=== PATIENT | female | born 1945 | race Hispanic/Latino ===

== ENCOUNTER → 2018-05-10 | Outpatient (CLI) | payer OTHER | END | disposition home or self-care (01) | LOC: RAH 08:38 | PROVIDERS: ATTEND Internal Medicine Gastroenterology | DX: K21.9 Gastro-esophageal reflux disease without esophagitis (principal); K44.9 Diaphragmatic hernia without obstruction or gangrene | CPT/HCPCS: 74240 ==

== ENCOUNTER → 2018-06-26 | Outpatient (CLI) | payer OTHER | END | disposition home or self-care (01) | LOC: RAH 10:23 | PROVIDERS: ATTEND Internal Medicine Gastroenterology | DX: K30 Functional dyspepsia (principal); R68.81 Early satiety | CPT/HCPCS: 78264; A9541 ==

== ENCOUNTER → 2018-08-16 | Outpatient (CLI) | payer OTHER, MEDICARE | END | disposition home or self-care (01) | LOC: SHCH 13:23 | PROVIDERS: ATTEND Internal Medicine Cardiovascular Disease | DX: I10 Essential (primary) hypertension (principal) | CPT/HCPCS: 93306 ==

== ENCOUNTER → 2018-12-18 | Outpatient (CLI) | payer OTHER, MEDICARE | END | disposition home or self-care (01) | LOC: RAH 08:08 | PROVIDERS: ATTEND Internal Medicine Gastroenterology | DX: K76.0 Fatty (change of) liver, not elsewhere classified (principal); N28.1 Cyst of kidney, acquired | CPT/HCPCS: 76700 ==

== ENCOUNTER → 2019-01-15 | Outpatient (CLI) | payer OTHER, MEDICARE | END | disposition home or self-care (01) | LOC: RAH 12:27 | PROVIDERS: ATTEND Family Medicine | DX: R91.1 Solitary pulmonary nodule (principal) | CPT/HCPCS: 71250 ==

== ENCOUNTER 2019-06-12 12:36 | Observation (INO) | payer OTHER, MEDICARE ==
[~2019-06-12] VITALS: Ht 165.1 cm; Wt 67.6 kg
[2019-06-12 13:00] LABS: BASOPHILS % (AUTO) 0.6 % (0.0-5.0); EOSINOPHILS % (AUTO) 4.2 % (0.0-8.0); HEMATOCRIT 37.3 % (36-48); LYMPHOCYTES % (AUTO) 29.4 % (21.0-51.0); MEAN CORPUSCULAR HEMOGLOBIN 30.3 pg (27.0-33.0); MONOCYTES % (AUTO) 6.4 % (3.0-13.0); NEUTROPHILS % (AUTO) 59.4 % (40.0-77.0); NUCLEATED RED BLOOD CELLS 0.1 % (0.0-0.19); PLATELET COUNT (AUTO) 271 K/uL (130-400); RED BLOOD CELL COUNT(AUTO) 4.19 MIL/uL (4.00-5.50); RED CELL DISTRIBUTION WIDTH 13.6 % (11.0-15.5)
[2019-06-12 13:07] LABS: CREATININE 0.8 mg/dL (0.5-1.5); POTASSIUM 3.9 mmol/L (3.5-5.1)
[2019-06-12 13:12] LABS: INR 0.96 (0.85-1.15); PARTIAL THROMBOPLASTIN TIME 27.1 SEC (26.3-35.5); PROTHROMBIN TIME 10.1 SEC (9.6-11.6)
[2019-06-12 13:18] LABS: BILIRUBIN,TOTAL 0.2 mg/dL (0.2-1.0); TOTAL PROTEIN, SERUM 7.6 g/dL (6.0-8.3)
[2019-06-12] MEDS ORDERED: ASPIRIN 325 MG TABLET ONE (14:01)
[2019-06-12] MEDS ORDERED: GUAIFENESIN-DM 200/20 MG 10 ML PO PRN (16:45)
[2019-06-12] MEDS ORDERED: ONDANSETRON HCL 4 MG/2 ML VIAL IV PRN (16:45)
[2019-06-12] MEDS ORDERED: LABETALOL 20 MG/4 ML DISP.SYRIN IV PRN (16:45)
[2019-06-12] MEDS ORDERED: ZOLPIDEM TARTRATE 5 MG TAB PO PRN (16:45)
[2019-06-12] MEDS ORDERED: GLUCAGON 1MG KIT 1 MG ML IM PRN (16:45)
[2019-06-12] MEDS ORDERED: DEXTROSE 50%-WATER 50 ML DISP.SYRIN IV PRN (16:45)
[2019-06-12] MEDS ORDERED: NITROGLYCERIN 0.4 MG SL TAB SL PRN (16:45)
[2019-06-12] MEDS ORDERED: DiphenhydrAMINE HCL 50 MG/ML VIAL IV PRN (16:45)
[2019-06-12] MEDS ORDERED: ACETAMINOPHEN-CODEINE 300/30MG TAB PO PRN (16:45)
[2019-06-12] MEDS ORDERED: HYDRALAZINE HCL 20 MG/ML VIAL IV PRN (16:45)
[2019-06-12] MEDS ORDERED: ACETAMINOPHEN EXTENDED RELEASE 650 MG TABLET PO PRN (16:45)
[2019-06-12 17:18] VITALS: BP 148/91
[2019-06-12 19:31] VITALS: BP 129/79
[2019-06-12] MEDS: INSULIN HUMULIN R 100 UNIT/ML 3ML SQ SCH (20:52)
[2019-06-12] MEDS: SODIUM CHLORIDE 0.9% 1000ML 1,000 ML IV SCH (20:53)
[2019-06-12] MEDS ORDERED: ATORVASTATIN CALCIUM 20 MG TABLET PO SCH (21:00)
[2019-06-12 21:28] LABS: APPEARANCE,URINE Cloudy (CLEAR); BILIRUBIN,URINE Negative (NEGATIVE); COLOR,URINE Yellow (YELLOW); GLUCOSE, URINE (UA) Negative (NEGATIVE); KETONES,URINE Negative (NEGATIVE); LEUKOCYTE ESTERASE ,URINE Moderate (NEGATIVE); NITRATE,URINE Negative (NEGATIVE); OCCULT BLOOD,URINE Negative (NEGATIVE); PH,URINE 6.5 (5.0-8.0); PROTEIN,URINE Negative (NEGATIVE)
[2019-06-12] MEDS ORDERED: LIRA0.6P SQ (21:33)
[2019-06-12] MEDS ORDERED: FAMO40TA7 PO (21:33)
[2019-06-12] MEDS ORDERED: DEXL30CA3 PO (21:33)
[2019-06-12] MEDS ORDERED: LISI30TA4 PO (21:33)
[2019-06-12] MEDS ORDERED: SIMV20TA6 PO (21:33)
[2019-06-12] MEDS ORDERED: GLIP5TAB11 PO (21:33)
[2019-06-12 21:34] LABS: AMPHET/METH SCREEN,URINE NEGATIVE (NEGATIVE); BARBITURATE SCREEN, URINE NEGATIVE (NEGATIVE); BENZODIAZEPINES SCREEN,URINE NEGATIVE (NEGATIVE); CANNABINOID SCREEN,URINE NEGATIVE (NEGATIVE); COCAINE SCREEN,URINE NEGATIVE (NEGATIVE); OPIATE SCREEN,URINE NEGATIVE (NEGATIVE); PHENCYCLIDINE SCREEN,URINE NEGATIVE (NEGATIVE)
[2019-06-12 21:44] LABS: BACTERIA,URINE Few /HPF (None Seen); RBC,URINE 0-1 /HPF (0-1); YEAST,URINE BUDDING Few /HPF (None Seen)
[2019-06-12 21:45] LABS: SQUAMOUS EPITHELIAL CELL,UR Few /HPF (0-2)
[2019-06-12 23:13] VITALS: BP 112/73
[2019-06-13] MEDS: SODIUM CHLORIDE 0.9% 1000ML 1,000 ML IV SCH ×2 (01:34→12:45)
[2019-06-13 04:03] VITALS: BP 140/78
[2019-06-13 05:26] LABS: HEMATOCRIT 33.9 % (36-48); MEAN CORPUSCULAR HGB CONC 33.8 g/dL (32.0-36.0); MEAN CORPUSCULAR VOLUME 88.8 fL (79-99); PLATELET COUNT (AUTO) 256 K/uL (130-400); RED BLOOD CELL COUNT(AUTO) 3.82 MIL/uL (4.00-5.50); RED CELL DISTRIBUTION WIDTH 13.9 % (11.0-15.5); WHITE BLOOD COUNT (AUTO) 5.1 K/uL (4.8-10.8)
[2019-06-13 05:36] LABS: HEMOGLOBIN A1C 6.8 % (4.0-6.0)
[2019-06-13] MEDS: INSULIN HUMULIN R 100 UNIT/ML 3ML SQ SCH ×3 (05:45→16:30)
[2019-06-13 05:57] LABS: ALANINE AMINOTRANSFERASE 14 U/L (12-78); ALBUMIN 3.2 g/dL (3.5-5.0); ASPARTATE AMINOTRANSFERASE 14 U/L (10-37); BILIRUBIN,TOTAL 0.4 mg/dL (0.2-1.0); CARBON DIOXIDE 29 mmol/L (21-32); CHLORIDE 105 mmol/L (101-111); CHOLESTEROL 140 mg/dL (<200); CREATINE KINASE, TOTAL 70 U/L (21-232); CREATININE 0.7 mg/dL (0.5-1.5); GLOMERULAR FILTR. RATE CALC 87 mL/min (>60); GLUCOSE,RANDOM 140 mg/dL (70-105); HDL CHOLESTEROL 40 mg/dL (35-85); LDL DIRECT 84 mg/dL (0-99); MYOGLOBIN 43 ng/mL (10-92); POTASSIUM 4.6 mmol/L (3.5-5.1); SODIUM SERUM 142 mmol/L (136-145); THYROID STIMULATING HORMONE 1.89 uIU/mL (0.36-3.74); TOTAL PROTEIN, SERUM 6.5 g/dL (6.0-8.3); TRIGLYCERIDES 160 mg/dL (30-200); TROPONIN I < 0.04 ng/mL (0.00-0.06); UREA NITROGEN, BLOOD 9 mg/dL (7-18)
[2019-06-13 08:00] VITALS: BP_SYST 123; BP_SYST 126; BP_SYST 131; BP_DIAS 75; BP_DIAS 78
[2019-06-13] MEDS ORDERED: GADODIAMIDE 10 MMOL/20 ML VIAL IV ONE (08:38)
[2019-06-13] MEDS ORDERED: PANTOPRAZOLE SODIUM 40 MG TABLET.DR PO SCH (09:00)
[2019-06-13] MEDS ORDERED: ENOXAPARIN SODIUM 40 MG/0.4 ML SYRINGE SQ SCH (09:00)
--- NOTE | 2019-06-13 11:21 | NUR ---
CHART CHECK COMPLETED. PATIENT INFORMATION: Pt IS A 74 FEMALE ADMITTED SECONDARY TO TIA, RULE OUT, SYMPTOMS RESOLVED, POSSIBLE UNDIAGNOSED SLEEP APNEA, DIABETES, HYPERTENSION, HYPERLIPIDEMIA, OBESITY, MIGRAINES. Pt HAS A PAST MEDICAL HISTORY SIGNIFICANT FOR DIABETES, HYPERTENSION, HYPERLIPIDEMIA, CATARACTS, MIGRAINE HEADACHES, POOR SLEEP HYGIENE, And SEASONAL SINUS PROBLEMS. PAST SURGICAL HISTORY: RIGHT CATARACT SURGERY AUGUST 2018, LEFT CATARACT SURGERY JULY 2018, CARPAL TUNNEL SURGERY 10 YEARS AGO, TUBAL LIGATION, QUARTER SIZE MOLE REMOVED FROM RIGHT TEMPORAL AREA. PLEASE REQUEST SKILLED SPEECH THERAPY INTERVENTION IF Pt PRESENTS WITH ANY S/S OF ASPIRATION SUCH DIFFICULTY EATING OR COUGHING DURING MEAL TIMES. Addendum: 06/13/19 at 1122 by BRYN WOOD [facility] Amended: Links added.
[2019-06-13 12:00] VITALS: BP 146/87
[2019-06-13 16:00] VITALS: BP 124/76
[2019-06-13] MEDS ORDERED: CLOP75TA14 PO (16:09)
--- NOTE | 2019-06-13 17:30 | NUR ---
PATIENT GIVEN DISCHARGE INSTRUCTIONS AND EDUCATION ON FOLLOW UP APPOINTMENTS AND NEW PRESCRIBED MEDICATIONS. PATIENT VERBALIZED UNDERSTANDING ALL EDUCATION GIVEN VIA TEACH BACK. PATIENT ALREADY ON ATORVASTATIN AT HOME. NEW MED ONLY PLAVIX. IV DISCONTINUED, CATHETER INTACT. PATIENT LEFT VIA WHEELCHAIR ALL BELONGINGS TAKEN WITH. NO DISTRESS NOTED UPON DISCHARGE.
--- NOTE | 2019-06-13 19:05 | NUR ---
CM NOTE MED RECORD REVIEWED, PT HERE IN OBS STATUS AND PROB DC TODAY, NO TRIGGERS, MARCOS DATA BASE REVIEWED, MANOHAR RAMÍREZ ASSESSMENT DEFERRED Addendum: 06/13/19 at 1907 by VILMA FRANKS RN CM Amended: Links added.
[2019-06-14] MEDS ORDERED: CLOPIDOGREL BISULFATE 75 MG TAB PO SCH (09:00)
== END 2019-06-13 17:50 | disposition home or self-care (01) ==
LOC: EDH 12:36 → UNDOADMOB 15:00 → EDHIP 15:00 → INTOOBSV 15:00 → 3CH 16:51 → EDHIP 16:51 → 3CH 17:03
PROVIDERS: ADMIT Internal Medicine; ATTEND Internal Medicine
DX: H53.122 Transient visual loss, left eye (principal); G43.909 Migraine, unspecified, not intractable, without status migrainosus; R42 Dizziness and giddiness; E11.9 Type 2 diabetes mellitus without complications; I10 Essential (primary) hypertension; E66.9 Obesity, unspecified; E78.5 Hyperlipidemia, unspecified; Z87.891 Personal history of nicotine dependence; Z98.41 Cataract extraction status, right eye; Z98.42 Cataract extraction status, left eye; Z98.51 Tubal ligation status; Z68.24 Body mass index [BMI] 24.0-24.9, adult
CPT/HCPCS: 36415 ×2; 70450; 70544; 70553; 71045; 80053 ×2; 80061; 80305; 81001; 82550 ×2; 82948 ×5; 83036; 83721; 83874; 84439; 84443; 84484 ×2; 85025; 85027; 85610; 85730; 93005; 93306; 93880; 94660; 96360; 96361 ×2; 96372; 99291; A9579; G0378 ×25; J1650; J7030

== ENCOUNTER 2019-08-19 08:33 | Day surgery (SDC) | payer OTHER, MEDICARE ==
[~2019-08-19] VITALS: Ht 165.1 cm; Wt 67.6 kg
[~2019-08-19 08:33] MED LIST: DEXL30CA3 PO; FAMO40TA7 PO; GLIP5TAB11 PO; LIRA0.6P SQ; LISI30TA4 PO; SIMV-43 PO; SODIUM CHLORIDE 0.9% 1000ML 1,000 ML IV ONE
[2019-08-19] MEDS ORDERED: BOTULINUM TOXIN TYPE A 100 UNITS/VIAL INJ SCH (09:15)
[2019-08-19 09:40] VITALS: BP 129/77
[2019-08-19] MEDS ORDERED: PROPOFOL 10 MG/ML 20ML VIAL IV ONE ×2 (10:26)
[2019-08-19 10:38] VITALS: BP 130/74
[2019-08-19 10:43] VITALS: BP 132/78
[2019-08-19 10:48] VITALS: BP 123/75
[2019-08-19 10:53] VITALS: BP 132/78
[2019-08-19 10:58] VITALS: BP 125/82
== END 2019-08-19 11:03 | disposition home or self-care (01) ==
LOC: DAH 08:33 → ENDO 08:33
PROVIDERS: ATTEND Internal Medicine
DX: R13.10 Dysphagia, unspecified (principal); K31.89 Other diseases of stomach and duodenum; K31.7 Polyp of stomach and duodenum; K22.8 Other specified diseases of esophagus; K21.9 Gastro-esophageal reflux disease without esophagitis; E11.22 Type 2 diabetes mellitus with diabetic chronic kidney disease; N18.9 Chronic kidney disease, unspecified; E11.42 Type 2 diabetes mellitus with diabetic polyneuropathy; E78.00 Pure hypercholesterolemia, unspecified; M19.90 Unspecified osteoarthritis, unspecified site; Z88.8 Allergy status to other drugs, medicaments and biological substances; Z79.84 Long term (current) use of oral hypoglycemic drugs; Z79.899 Other long term (current) drug therapy; Z86.010 Personal history of colon polyps; Z87.891 Personal history of nicotine dependence; Z82.49 Family history of ischemic heart disease and other diseases of the circulatory system; Z83.3 Family history of diabetes mellitus; Z80.3 Family history of malignant neoplasm of breast
CPT/HCPCS: 36415; 43236; 82948; 84132; A4215; A4221; A4222; A4223; A4606; A4615; A4663; J0585; J2704 ×2; J7030

== ENCOUNTER → 2019-08-29 | Outpatient (CLI) | payer OTHER, MEDICARE ==
[~2019-08-29] MED LIST changes: -SODIUM CHLORIDE 0.9% 1000ML 1,000 ML IV ONE
== END | disposition home or self-care (01) ==
LOC: RAH 08:54
PROVIDERS: ATTEND Internal Medicine Gastroenterology
DX: K21.9 Gastro-esophageal reflux disease without esophagitis (principal)
CPT/HCPCS: 74240

== ENCOUNTER → 2019-11-17 | Outpatient (CLI) | payer OTHER, MEDICARE ==
[2019-11-17 13:28] LABS: ALBUMIN 3.9 g/dL (3.5-5.0); BILIRUBIN,TOTAL 0.2 mg/dL (0.2-1.0); CREATININE 0.9 mg/dL (0.5-1.5); POTASSIUM 4.5 mmol/L (3.5-5.1); TOTAL PROTEIN, SERUM 7.5 g/dL (6.0-8.3)
== END | disposition home or self-care (01) ==
LOC: LAB 12:21
PROVIDERS: ATTEND Family Medicine
DX: I12.9 Hypertensive chronic kidney disease with stage 1 through stage 4 chronic kidney disease, or unspecified chronic kidney disease (principal); N18.9 Chronic kidney disease, unspecified
CPT/HCPCS: 36415; 80053

== ENCOUNTER → 2019-11-18 | Outpatient (CLI) | payer OTHER, MEDICARE ==
[~2019-11-18] MED LIST changes: +IOHEXOL 350 MG/ML 100ML INFUS..BTL IV ONE
== END | disposition home or self-care (01) ==
LOC: RAH 08:40
PROVIDERS: ATTEND Family Medicine
DX: K44.9 Diaphragmatic hernia without obstruction or gangrene (principal); N28.1 Cyst of kidney, acquired
CPT/HCPCS: 74175; Q9967

== ENCOUNTER → 2020-01-27 | Outpatient (CLI) | payer OTHER, MEDICARE | END | disposition home or self-care (01) | LOC: RAH 12:52 | PROVIDERS: ATTEND Family Medicine | DX: J44.9 Chronic obstructive pulmonary disease, unspecified (principal); I70.0 Atherosclerosis of aorta; R91.1 Solitary pulmonary nodule ==

== ENCOUNTER → 2020-08-31 | Outpatient (CLI) | payer OTHER, MEDICARE ==
[~2020-08-31] MED LIST changes: -IOHEXOL 350 MG/ML 100ML INFUS..BTL IV ONE
== END | disposition home or self-care (01) ==
LOC: RAH 13:01
PROVIDERS: ATTEND Family Medicine
DX: M77.32 Calcaneal spur, left foot (principal); M77.31 Calcaneal spur, right foot; M19.072 Primary osteoarthritis, left ankle and foot; M19.071 Primary osteoarthritis, right ankle and foot; M79.672 Pain in left foot; M79.671 Pain in right foot
CPT/HCPCS: 73620

== ENCOUNTER → 2020-12-15 | Outpatient (CLI) | payer OTHER, MEDICARE | END | disposition home or self-care (01) | LOC: RAH 08:44 | PROVIDERS: ATTEND Family Medicine | DX: R10.2 Pelvic and perineal pain (principal); K76.0 Fatty (change of) liver, not elsewhere classified; N28.89 Other specified disorders of kidney and ureter; N28.1 Cyst of kidney, acquired | CPT/HCPCS: 76700; 76856 ==

== ENCOUNTER → 2022-07-19 | Outpatient (CLI) | payer OTHER, MEDICARE | END | disposition home or self-care (01) | LOC: RAH 13:48 | PROVIDERS: ATTEND Family Medicine | DX: I70.0 Atherosclerosis of aorta (principal); M47.815 Spondylosis without myelopathy or radiculopathy, thoracolumbar region; M54.9 Dorsalgia, unspecified; R91.1 Solitary pulmonary nodule; Z90.49 Acquired absence of other specified parts of digestive tract | CPT/HCPCS: 71250; 72070 ==

== ENCOUNTER → 2023-01-23 | Outpatient (CLI) | payer OTHER, MEDICARE | END | disposition home or self-care (01) | LOC: RAH 13:17 | PROVIDERS: ATTEND Family Medicine | DX: R91.1 Solitary pulmonary nodule (principal) | CPT/HCPCS: 71250 ==

== ENCOUNTER → 2023-09-25 | Outpatient (CLI) | payer OTHER, MEDICARE ==
[~2023-09-25] MED LIST changes: -GLIP5TAB11 PO; +GLIP5TAB15 PO; +IOHEXOL 350 MG/ML 100ML INFUS..BTL IV ONE
== END | disposition home or self-care (01) ==
LOC: RAH 08:31
PROVIDERS: ATTEND Family Medicine
DX: K44.9 Diaphragmatic hernia without obstruction or gangrene (principal); K57.90 Diverticulosis of intestine, part unspecified, without perforation or abscess without bleeding; R10.9 Unspecified abdominal pain; N28.1 Cyst of kidney, acquired; I25.10 Atherosclerotic heart disease of native coronary artery without angina pectoris; M47.815 Spondylosis without myelopathy or radiculopathy, thoracolumbar region; Z98.890 Other specified postprocedural states
CPT/HCPCS: 74175; Q9967

== ENCOUNTER → 2024-06-12 | Outpatient (CLI) | payer OTHER ==
[~2024-06-12] MED LIST changes: -IOHEXOL 350 MG/ML 100ML INFUS..BTL IV ONE
== END | disposition home or self-care (01) ==
LOC: RAH 13:41
PROVIDERS: ATTEND Family Medicine
DX: R91.1 Solitary pulmonary nodule (principal)
CPT/HCPCS: 71250

== ENCOUNTER → 2025-05-21 | Outpatient (CLI) | payer OTHER ==
--- NOTE | 2025-05-22 09:56 | HMCIMG ---
EXAM: CT Chest Without IV contrast. CLINICAL HISTORY: Solitary pulmonary nodule TECHNIQUE: Axial computed tomography images of the chest without intravenous contrast. COMPARISON: CT chest dated 12 June 2024. FINDINGS: LUNGS: Stable solitary pulmonary nodule is seen along the lateral segment of the left lower lobe measuring 6 x 5 mm. A few subtle interstitial fibrotic bands are seen along the subpleural region of the left lower lobe. PLEURAL SPACES: No pneumothorax evident. No pleural effusions. HEART: Atherosclerotic changes are seen in the form of atheromatous calcification of the thoracic aorta and arch of the aorta. No cardiomegaly. No significant pericardial effusion. LYMPH NODES: No lymphadenopathy is evident. UPPER ABDOMEN: Visualized section of the abdomen reveals post-cholecystectomy status. Mild cortical irregularity of the bilateral renal parenchyma was visualized. BONES: Degenerative changes are seen in the spine. No acute osseous abnormality. IMPRESSION: 1. Stable 6 x 5 mm nodule in left lower lobe. LUNG RADS 2: Follow up in 12 months with LDCT. 2. Subtle subpleural fibrotic bands in left lower lobe. No pulmonary infiltrates or pleural effusions. 3. Atherosclerotic changes of thoracic aorta. 4. Post-cholecystectomy status. 5. Mild bilateral renal cortical irregularity. 6. Degenerative changes of the spine. /[place]
== END | disposition home or self-care (01) ==
LOC: RAH 13:42
PROVIDERS: ATTEND Family Medicine
DX: R91.1 Solitary pulmonary nodule (principal); I70.0 Atherosclerosis of aorta; M47.814 Spondylosis without myelopathy or radiculopathy, thoracic region; Z90.49 Acquired absence of other specified parts of digestive tract
CPT/HCPCS: 71250